=== PATIENT | female | born 1990 | race Caucasian/White ===

== ENCOUNTER 2023-08-05 01:19 | Emergency (ER) | payer SELFPAY ==
[~2023-08-05] VITALS: Ht 157.5 cm; Wt 59.0 kg
[2023-08-05] MEDS ORDERED: ONDA4TAB5 PO (02:02)
[2023-08-05 02:16] VITALS: BP 115/85; TEMP 98.5; O2SAT 100
== END 2023-08-05 02:16 | disposition home or self-care (01) ==
LOC: ER 01:24
DX: F07.81 Postconcussional syndrome (principal); R11.0 Nausea; Z79.899 Other long term (current) drug therapy; V49.9XXA Car occupant (driver) (passenger) injured in unspecified traffic accident, initial encounter; Y93.89 Activity, other specified; Y92.89 Other specified places as the place of occurrence of the external cause; Y99.8 Other external cause status
CPT/HCPCS: A4606; A4663